=== PATIENT | female | born 1995 | race Caucasian/White ===

== ENCOUNTER 2018-10-28 12:39 | Emergency (ER) | payer OTHER ==
[~2018-10-28] VITALS: Ht 167.6 cm; Wt 49.9 kg
[2018-10-28] MEDS ORDERED: SODIUM CHLORIDE 0.9% 1,000 ML IVB ONE (13:44)
[2018-10-28] MEDS ORDERED: PROCHLORPERAZINE EDISYLATE 5 MG/ML 2ML VIAL IV ONE (13:45)
[2018-10-28 14:32] LABS: Basophils # (auto) 0 uL; Eosinophils # (auto) 0 uL; Lymphocytes # (auto) 0.9 uL; Lymphocytes % (auto) 11.3 % (10.0-50.0); Monocytes # (auto) 0.2 uL
[2018-10-28 14:35] LABS: Basophils % (auto) 0.2 % (0.0-2.0); Eosinophils % (auto) 0.3 % (0.0-7.0); Hematocrit 40.2 % (36.0-46.0); Mean Corpuscular Hemoglobin 25.1 pg (28.0-32.0); Mean Corpuscular Hgb Conc. 32.5 g/dL (32.0-36.0); Mean Corpuscular Volume 77.3 fL (80.0-100.0); Monocytes % (auto) 3.1 % (0.0-12.0); Neutrophils # (auto) 6.5 uL; Neutrophils % (auto) 85.1 % (37.0-80.0); Platelet Count (auto) 235 10^3/uL (140-450); Red Cell Distribution Width 13.7 % (11.8-14.3); White Blood Cell 7.6 10^3/uL (4.4-10.8)
[2018-10-28 14:42] LABS: Calcium 8.4 mg/dL (8.5-10.1); Magnesium 2.1 mg/dL (1.6-2.6); Potassium 3.8 mmol/L (3.5-5.1)
[2018-10-28 14:48] LABS: BUN/Creatinine Ratio 12.5
[2018-10-28 16:48] VITALS: BP 122/80
== END 2018-10-28 16:58 | disposition home or self-care (01) ==
LOC: ER 12:39
DX: F12.188 Cannabis abuse with other cannabis-induced disorder (principal); F12.10 Cannabis abuse, uncomplicated
CPT/HCPCS: 36415; 80048; 83690; 83735; 84702; 85025; 96361; 96374; 99283; J0780; J7030

== ENCOUNTER 2019-01-29 00:53 | Emergency (ER) | payer OTHER ==
[~2019-01-29] VITALS: Ht 167.6 cm; Wt 52.2 kg
[2019-01-29 01:45] LABS: Basophils # (auto) 0 uL; Basophils % (auto) 0.1 % (0.0-2.0); Eosinophils # (auto) 0 uL; Hemoglobin 13.1 g/dL (12.2-16.2); Monocytes # (auto) 0.2 uL
[2019-01-29 01:47] LABS: Eosinophils % (auto) 0.1 % (0.0-7.0); Hematocrit 39.5 % (36.0-46.0); Lymphocytes # (auto) 0.6 uL; Lymphocytes % (auto) 4.4 % (10.0-50.0); Mean Corpuscular Hemoglobin 25.8 pg (28.0-32.0); Mean Corpuscular Hgb Conc. 33.2 g/dL (32.0-36.0); Mean Corpuscular Volume 77.7 fL (80.0-100.0); Monocytes % (auto) 1.5 % (0.0-12.0); Neutrophils # (auto) 11.8 uL; Neutrophils % (auto) 93.9 % (37.0-80.0); Platelet Count (auto) 203 10^3/uL (140-450); Red Blood Cells 5.08 10^6/uL (4.0-5.20); Red Cell Distribution Width 13.2 % (11.8-14.3); White Blood Cell 12.5 10^3/uL (4.4-10.8)
[2019-01-29 01:56] LABS: INR 1.07 (0.9-1.15); Partial Thromboplastin Time 24.2 sec (23.78-33.04); Prothrombin Time 11.4 sec (9.27-12.13)
[2019-01-29 01:57] LABS: Albumin 4.5 g/dL (3.4-5.0); BUN/Creatinine Ratio 11.3; Magnesium 1.9 mg/dL (1.6-2.6); Potassium 3.6 mmol/L (3.5-5.1)
[2019-01-29 01:57] LABS: Urine Amorphous Crystal MOD /hpf (None Seen); Urine Bacteria FEW /hpf (None Seen); Urine Blood Negative /uL (Negative); Urine Hyaline Cast FEW /lpf (0 - 2); Urine Mucus FEW (None Seen); Urine Specific Gravity 1.028 (1.001-1.035); Urine WBC 5 /hpf (0 - 5)
[2019-01-29 02:00] LABS: Bilirubin, Total 0.7 mg/dL (0.2-1.0); Total Protein 8.3 g/dL (6.4-8.2)
[2019-01-29] MEDS ORDERED: FAMOTIDINE (10MG/ML) 2ML VL IV ONE (03:45)
[2019-01-29] MEDS ORDERED: ONDANSETRON HCL 4 MG/2 ML VIAL IV ONE (03:45)
[2019-01-29] MEDS ORDERED: cefTRIAXone 1GM/50ML D5W 50 ML IV ONE (03:45)
[2019-01-29] MEDS ORDERED: MORPHINE SULF INJ 2 MG/ML SYRINGE 1ML IV ONE (03:45)
[2019-01-29] MEDS ORDERED: SODIUM CHLORIDE 0.9% 1,000 ML IV ONE (03:45)
[2019-01-29 05:00] VITALS: BP 134/56
== END 2019-01-29 05:36 | disposition home or self-care (01) ==
LOC: ER 00:58
DX: K29.00 Acute gastritis without bleeding (principal); F12.10 Cannabis abuse, uncomplicated
CPT/HCPCS: 36415; 74176; 80053; 81001; 81025; 82150; 83690; 83735; 85025; 85610; 85730; 96365; 96375; 99284; J0696; J2270; J2405; J3490; J7030